=== PATIENT | male | born 1955 | race Caucasian/White ===

== ENCOUNTER → 2023-03-02 13:22 | Outpatient (CLI) | payer MEDICARE, SELFPAY ==
[2023-03-02 19:48] LABS: Add Manual Diff / Slide Review NO; Basophils Absolute Auto 0 /uL (0-100); Basophils Percent Auto 0.6 % (0-2); Eosinophils Absolute Auto 100 /uL (0-450); Eosinophils Percent Auto 1.9 % (2-4); Hematocrit 39.3 % (41-53); Hemoglobin 13.7 g/dL (13.5-17.5); Lymphocytes Absolute Auto 1800 /uL (1100-4500); Lymphocytes Percent Auto 33.2 % (25-40); Mean Corpuscular HGB Conc 34.8 % (30-36); Mean Corpuscular Hemoglobin 33.9 PG (26-34); Mean Corpuscular Volume 97.3 fL (80-100); Monocytes Absolute Auto 500 /uL (0-900); Monocytes Percent Auto 8.4 % (3-14); Neutrophils Absolute Auto 3000 /uL (1500-7000); Neutrophils Percent Auto 55.9 % (50-75); Platelet Count 164 X10^3/uL (150-400); Red Blood Cell Count 4.04 X10^6/uL (4.5-5.9); Red Cell Distribution Width 12.4 % (11.6-14.8); White Blood Cell Count 5.4 X10^3/uL (4.5-11.0)
[2023-03-02 19:52] LABS: Alanine Aminotransferase 20 IU/L (<50); Albumin 4.3 g/dL (3.5-5.0); Albumin Globulin Ratio 1.7 (1.0-2.8); Alkaline Phosphatase 46 U/L (38-126); Aspartate Aminotransferase 25 IU/L (17-59); BUN Creatinine Ratio 23.5 (6-22); Bilirubin Total 0.6 mg/dL (0.2-1.3); Blood Urea Nitrogen 19 mg/dL (9-20); Calcium 8.8 mg/dL (8.4-10.2); Carbon Dioxide 29 mmol/L (22-32); Chloride 103 mmol/L (98-107); Cholesterol 169 mg/dL (140-199); Estimated Glomerular Filt Rate > 60 mL/min (>60); Globulin 2.5 g/dL (1.7-4.1); Glucose 165 mg/dL (80-110); HDL Cholesterol 88 mg/dL (40-60); HEMOLYSIS < 15 (0-50); LDL Cholesterol Calculated 64 mg/dL (<100); Potassium 3.8 mmol/L (3.4-5.1); Sodium 136 mmol/L (137-145); Total Protein 6.8 g/dL (6.3-8.2); Triglycerides 85 mg/dL (35-150)
[2023-03-02 20:19] LABS: Thyroid Stimulating Hormone 1.75 uIU/mL (0.47-4.68)
[2023-03-04 00:23] LABS: x Labcorp Estim. Avg Glu (eAG) 103 mg/dL (.); x Labcorp Hemoglobin A1c 5.2 % (4.8-5.6)
== END ==
PROVIDERS: Family Provider Physician Assistant; PCP Family Medicine; Visit Provider Family Medicine
DX: Z13.6 Encounter for screening for cardiovascular disorders (principal); R68.84 Jaw pain; K59.00 Constipation, unspecified; M54.6 Pain in thoracic spine; R07.81 Pleurodynia; R10.9 Unspecified abdominal pain; R10.13 Epigastric pain
CPT/HCPCS: 80053; 80061; 83036; 84443; 85025

== ENCOUNTER → 2023-03-06 11:57 | Outpatient (CLI) | payer MEDICARE, SELFPAY ==
--- NOTE | 2023-03-06 11:59 | DI.CT.S_ITS ---
PROCEDURE: CT ABDOMEN PELVIS W CON INDICATIONS: epigastric and left flank pain - concern for pancreatic cancer TECHNIQUE: After the administration of oral and intravenous contrast, axial sections were acquired from the lung bases to the pubic symphysis. Coronal and sagittal reformats were performed. For radiation dose reduction, the following was used: automated exposure control, adjustment of mA and/or kV according to patient size. COMPARISON:[facility], CT, ABDOMEN/PELVIS WITH CONTRAST, 06/22/2007, 12:38. FINDINGS: Image quality: Excellent. Lung bases: Unremarkable. Heart: No significant findings. ABDOMEN: Liver: Unremarkable. Gallbladder: Unremarkable. Biliary ducts: Unremarkable. Pancreas: There is heterogeneous attenuation of the pancreatic head, with interspace to fat. The adjacent vessels are widely patent, without narrowing. No pancreatic ductal dilation. Spleen: Unremarkable. Adrenal Glands: Unremarkable. Kidneys and Ureters: Unremarkable. Stomach and Bowel: Stomach, small bowel loops, and colon are unremarkable. Peritoneum: No abnormal intraperitoneal fluid. No free air. Ventral Wall: Small umbilical hernia containing fat. Abdominal Nodes: No retroperitoneal or mesenteric adenopathy by size criteria. Vessels: Aorta and inferior vena cava are normal in size. PELVIS: Pelvic Organs: Unremarkable. Bladder: Unremarkable. Pelvic Nodes: No enlarged lymph nodes. Miscellaneous: No inguinal hernias are seen. Bones: Unremarkable. IMPRESSION: Heterogeneous attenuation of the pancreatic head, with interspaced fat. No adjacent adenopathy or vessel narrowing to suggest underlying mass. No pancreatic ductal dilation. This finding likely represents fatty deposition, with low chances of pancreatic head mass being present. If there remains a high clinical concern, endoscopic evaluation can be considered. Dictated by: Gene Harris M.D. on 03/06/2023 at 15:59 Approved by: Gene Harris M.D. on 03/06/2023 at 16:04
== END ==
PROVIDERS: Family Provider Physician Assistant; PCP Physician Assistant; Referring Provider Family Medicine; Visit Provider Family Medicine
DX: R10.13 Epigastric pain (principal); R10.9 Unspecified abdominal pain
CPT/HCPCS: 74177; Q9967

== ENCOUNTER → 2023-03-20 11:13 | Outpatient (CLI) | payer MEDICARE, SELFPAY ==
--- NOTE | 2023-03-20 11:15 | DI.MRI.S_ITS ---
PROCEDURE: MR AB PANCREATIC/MRCP PROTOCOL INDICATIONS: abnormal CT of pancreas. epigastric and back pain TECHNIQUE: Coronal HASTE through the abdomen, axial 2-D FLASH in- and [id number], and breath-hold T2 FSE with fat saturation through the biliary system and pancreas. Oblique coronal and axial thin-slice HASTE, radial thick-slab HASTE centered on the extrahepatic bile ducts. Intravenous secretin: Not requested. COMPARISON: Located Within [facility], CT, CT ABDOMEN PELVIS W CON, 03/06/2023, 12:21. FINDINGS: Image quality: Excellent. Liver: No solid mass. Gallbladder and biliary tree: No gallstones or biliary dilation. Spleen: Normal size. Pancreas: No ductal dilation. No solid mass. Mild fatty atrophy of the pancreatic head. A few sub 5 millimeter T2 hyperintense cystic lesions, most of which have connection to the pancreatic duct. For example, the 3 millimeter lesion in the pancreatic head (series 6, image 9) and the 3 millimeter lesion in the pancreatic tail (series 6, image 10). No associated nodularity. Adrenal glands: No adrenal nodules. Kidneys: No hydronephrosis. No solid mass. No complex renal cysts which requires follow-up. Nodes and vessels: No retroperitoneal or mesenteric adenopathy by size criteria. Aorta and inferior vena cava are normal in size. Bowel and peritoneum: Unenhanced bowel loops are normal in caliber. No free fluid. Lung bases: No basal pleural effusions. Heart size is normal. Bones and soft tissues: Tiny umbilical hernia containing fat. Bone marrow is of normal overall signal. IMPRESSION: No solid pancreatic mass identified. A few sub 5 millimeter T2 hyperintense cystic lesions within the pancreatic parenchyma, likely representing a side branch IPMN. Given size, recommend follow-up in 2 years with MRI/MRCP with contrast. Dictated by: Gene Harris M.D. on 03/20/2023 at 13:22 Approved by: Gene Harris M.D. on 03/20/2023 at 13:26
== END ==
PROVIDERS: Family Provider Physician Assistant; PCP Family Medicine; Referring Provider Family Medicine; Visit Provider Family Medicine
DX: R10.13 Epigastric pain (principal); M54.6 Pain in thoracic spine; R93.5 Abnormal findings on diagnostic imaging of other abdominal regions, including retroperitoneum
CPT/HCPCS: 74183; A9579

== ENCOUNTER → 2023-04-04 10:32 | Outpatient (CLI) | payer MEDICARE, SELFPAY ==
--- NOTE | 2023-04-04 10:33 | DI.MRI.S_ITS ---
PROCEDURE: MR THORACIC SPINE WO CON INDICATIONS: radiculopathy left chest wall TECHNIQUE: Noncontrast sagittal T1 spine echo and T2 fast spin echo, sagittal STIR, and T2 fast spin echo through the thoracic spine. COMPARISON: [facility] ([place]), CR, XR THORACIC SPINE 3V, 02/20/2023, 12:38. FINDINGS: Image quality: This examination is limited by involuntary motion artifact. Alignment and Curvature: Accentuated thoracic kyphosis is seen. No focal AP alignment abnormality is seen. Bone Marrow: Marrow is of normal overall signal. No acute vertebral body compression fractures. Spinal Cord: Visualized spinal cord is normal in size and signal. Paraspinous Soft Tissues: No paravertebral masses. Miscellaneous: Multiple levels of thoracic spine degenerative change can be seen, with scattered levels of mild disc space narrowing, with associated endplate irregularity and sclerosis. No significant neural foraminal narrowing is seen. No definite central canal narrowing is seen. IMPRESSION: Degenerative changes are seen, yet without a cause of the patient's presenting history. Dictated by: Joss White M.D. on 04/04/2023 at 17:31 Approved by: Joss White M.D. on 04/04/2023 at 17:32
== END ==
PROVIDERS: Family Provider Physician Assistant; PCP Family Medicine; Referring Provider Family Medicine; Visit Provider Family Medicine
DX: M54.10 Radiculopathy, site unspecified (principal); R07.89 Other chest pain; M47.814 Spondylosis without myelopathy or radiculopathy, thoracic region
CPT/HCPCS: 72146

== ENCOUNTER → 2023-05-10 13:55 | Outpatient (CLI) | payer MEDICARE, SELFPAY ==
[2023-05-15 09:22] LABS: Fecal Immunochemical Test Negative (Negative)
== END ==
PROVIDERS: Family Provider Physician Assistant; PCP Family Medicine; Visit Provider Family Medicine
DX: K59.00 Constipation, unspecified (principal)
CPT/HCPCS: 82274

== ENCOUNTER 2023-08-08 07:35 | Day surgery (SDC) | payer MEDICARE, SELFPAY ==
--- NOTE | 2023-08-08 | PATH_ITS ---
[facility] Accession Number: [id number] No. of containers..01 Tissue . 01 Material submitted: . cecum - CECAL POLYP . 01 Diagnosis: Cecum, Polyp: Tubular adenoma. JN 08/11/2023 1327 Local . 01 Electronically signed: . Gayle Pool MD, Pathologist NPI- [id number] . 01 Gross description: . CECAL POLYP: Received in formalin is 1 fragment(s) of whitaker, soft tissue measuring 0.8 x 0.4 x 0.3 cm submitted entirely in 1 cassette(s) /AAY 08/10/2023 0007 Local . 01 Pathologist provided ICD-10: D12.0 . 01 CPT . 039532 Specimen Comment: A courtesy copy of this report has been sent to [phone] Performed at: 01 [facility] [address] [place] [address], [place], [place] [id number] MD Ramakrishna Benavides MD Phone: [phone]
[2023-08-08 07:53] VITALS: BMI 30.4
[2023-08-08 07:58] VITALS: BP 154/91; PULSE 84; RESP 17; TEMP 36.9; O2SAT 94
[2023-08-08] MEDS: LACTATED RINGERS 1,000 ML 120 ML IV (08:01)
--- NOTE | 2023-08-08 08:13 | P.HP_ITS ---
History of Present Illness History of Present Illness Date Patient Seen: 08/08/23 Time Patient Seen: 08:13 Chief complaint: Screening Colonoscopy Narrative: 68-year-old man personal history of colonic polyps here for screening colonoscopy. Last colonoscopy 2017, [place]. family history unknown. Occasional bright red blood per rectum, no abdominal concerns. COUNTS INCLUDE 234 BEDS AT THE [facility] Medical History (Updated 05/02/23 @ 23:33 by Gayle Gupta MD) Pancreatic abnormality Knee pain Wears glasses Asbestosis PTSD (post-traumatic stress disorder) Foot pain Malaria Measles Chicken pox Hearing loss Kidney stones Surgical History (Updated 03/23/23 @ 20:31 by Fany Lozano) Anesthesia History of colonoscopy (~2018) History of knee surgery Family History (Updated 03/23/23 @ 20:33 by Fany Lozano) Mother History of heart disease Brother Broken leg Grandfather Cancer Social History household members: spouse Smoking Status: Never smoker alcohol intake: current Meds Home Medications and Allergies Home Medications Medication Instructions Recorded Confirmed Type sodium,potassium,mag sulfates 17.5 See Rx Instructions PO .COMPLEX 05/31/23 08/08/23 Rx gram-3.13 gram-1.6 gram oral soln #354 mL (Suprep Bowel Prep Kit) Allergies Allergy/AdvReac Type Severity Reaction Status Date / Time No Known Drug Allergies Allergy Verified 08/08/23 07:52 Exam Vital Signs (past 8 hours): - 08/08/23 07:58 Temperature 98.4 F Pulse Rate 84 Respiratory Rate 17 Blood Pressure 154/91 H Pulse Oximetry 94 Oxygen Delivery Method Room Air Oxygen Delivery Method Room Air Narrative Exam Narrative: General adult man alert oriented no acute distress Chest nonlabored respiration Extremities warm well perfused Assessment & Plan Assessment & Plan narrative: The patient requires colorectal screening and colonoscopy is recommended. Technical details were discussed. Risks, benefits, alternatives explained. Risks including but not limited to myocardial infarction, aspiration, bleeding, pain, missed lesion, incomplete examination, need for further radiographic studies, colonic perforation, and need for major abdominal surgery were discussed. All questions were answered to their satisfaction, and they are in agreement with this plan.
--- NOTE | 2023-08-08 08:14 | P.OP.COLON_ITS ---
Operative Date/Time/Diagnoses Date of procedure: 08/08/23 Time of procedure: 08:14 Pre-op diagnosis: Personal history of colonic polyps Procedure & Clinicians Study performed: Colonoscopy Same procedure as scheduled: Yes Indications: Colorectal screening Surgeon: Melchor Ballard Procedure Notes Procedure in detail: The history and physical was performed/updated and the patient is ASA class is 2. The procedure was discussed in detail with the patient. Potential risks complications including infection, bleeding, missed diagnosis, perforation, need for surgery, and were explained. Their questions were answered and informed consent was obtained. Patient was brought to the procedure room and placed standard monitoring equipment. The patient's vital signs were monitored continuously throughout the entire procedure. Prior to starting time-out was performed. The patient was placed in the left lateral recumbent position. Procedural sedation was administered by anesthesia. Examination began with a thorough inspection of the perianal area there was no evidence of fissures, fistulae, external hemorrhoids or cutaneous malignancy. The colonoscopy scope was then placed into the anal canal and was advanced to the cecum, which was identified by the ileocecal valve, the appendiceal orifice and the confluence of the taenia. The scope was then slowly withdrawn examining colon thoroughly in all directions, irrigating it of any residual stool. The scope was retroflexed within the rectum The patient tolerated the procedure well. They will be discharged once criteria are met. The prep was of good/excellent quality. The withdrawl time was 7 minutes. FINDINGS * Cecum-5 mm polyp removed in entirety with cold snare Specimen(s): other (Cecal polyp) Impression: Colonic polyp x1 Post-procedure Plan for aftercare: Follow-up is dependent on pathology findings likely 5 years. Disposition: same day surgery
[2023-08-08 09:10] VITALS: BP 119/74; PULSE 80; RESP 16; TEMP 36.1; O2SAT 97
[2023-08-08 09:20] VITALS: BP 135/74; PULSE 76; RESP 11; O2SAT 99
== END 2023-08-08 09:30 | disposition home or self-care (01) ==
PROVIDERS: Family Provider Physician Assistant; PCP Family Medicine; Referring Provider Surgery; Visit Provider Surgery
PROC: 0DJD8ZZ Inspection of Lower Intestinal Tract, Via Natural or Artificial Opening Endoscopic (ICD-10-PCS; CPT 45378; principal; 2023-08-08 08:45)
DX: Z12.11 Encounter for screening for malignant neoplasm of colon (principal); Z86.010 Personal history of colon polyps; D12.0 Benign neoplasm of cecum
CPT/HCPCS: 45385; J2704

== ENCOUNTER → 2024-03-27 11:35 | Outpatient (CLI) | payer MEDICARE, SELFPAY ==
[2024-03-27 20:43] LABS: Add Manual Diff / Slide Review NO; Basophils Absolute Auto 0 /uL (0-100); Basophils Percent Auto 0.5 % (0-2); Eosinophils Absolute Auto 200 /uL (0-450); Eosinophils Percent Auto 2.4 % (2-4); Hematocrit 43.6 % (41-53); Hemoglobin 15.1 g/dL (13.5-17.5); Lymphocytes Absolute Auto 2000 /uL (1100-4500); Mean Corpuscular HGB Conc 34.7 % (30-36); Mean Corpuscular Hemoglobin 33.8 PG (26-34); Mean Corpuscular Volume 97.6 fL (80-100); Monocytes Absolute Auto 600 /uL (0-900); Neutrophils Absolute Auto 3600 /uL (1500-7000); Neutrophils Percent Auto 56.1 % (50-75); Platelet Count 184 X10^3/uL (150-400); Red Blood Cell Count 4.46 X10^6/uL (4.5-5.9); Red Cell Distribution Width 13.1 % (11.6-14.8); White Blood Cell Count 6.4 X10^3/uL (4.5-11.0)
[2024-03-27 20:54] LABS: Alanine Aminotransferase 35 IU/L (<50); Albumin 4.4 g/dL (3.5-5.0); Albumin Globulin Ratio 1.8 (1.0-2.8); Alkaline Phosphatase 56 U/L (38-126); Aspartate Aminotransferase 32 IU/L (17-59); BUN Creatinine Ratio 19.1 (6-22); Bilirubin Total 0.6 mg/dL (0.2-1.3); Blood Urea Nitrogen 18 mg/dL (9-20); Calcium 9.4 mg/dL (8.4-10.2); Carbon Dioxide 27 mmol/L (22-32); Chloride 103 mmol/L (98-107); Creatine Kinase 52 U/L (55-170); Estimated Glomerular Filt Rate > 60 mL/min (>60); Globulin 2.5 g/dL (1.7-4.1); Glucose 152 mg/dL (80-110); Potassium 4.8 mmol/L (3.4-5.1); Sodium 137 mmol/L (137-145); Total Protein 6.9 g/dL (6.3-8.2)
[2024-03-27 21:07] LABS: NT-proBNP (BNP-Adult 18+) < 20 pg/mL (<125); Troponin I < 0.012 ng/mL (0.01-0.034)
[2024-03-27 21:15] LABS: Thyroid Stimulating Hormone 2.29 uIU/mL (0.47-4.68)
[2024-03-28 03:04] LABS: HEMOLYSIS < 15 (0-50); LDL Cholesterol Direct 72 mg/dL (<100)
== END ==
PROVIDERS: Family Provider Physician Assistant; PCP Family Medicine; Visit Provider Family Medicine
DX: R00.2 Palpitations (principal); E78.5 Hyperlipidemia, unspecified; R06.00 Dyspnea, unspecified; M79.89 Other specified soft tissue disorders
CPT/HCPCS: 80053; 82550; 83721; 83880; 84443; 84484; 85025

== ENCOUNTER → 2024-04-18 09:59 | Outpatient (CLI) | payer MEDICARE, SELFPAY ==
--- NOTE | 2024-04-18 10:00 | DI.ECHO.S_ITS ---
[facility]---------+ [facility] : : [address] : : [place] : : [id number] : : Phone: [phone] Echocardiogram Report + + :Name: NILESH LEIGH Study Date: 04/18/2024 Height: 72 in : :Hospital ReadingLocation: Weight: 235 lb : : Gender: Male BSA: 2.3 m2 : :: 1955 Age: 69 yrs BP: 139/87 mmHg: :Reason For Study: DYSPNEA, BILATREAL LEG SWELLING : :Ordering Physician: YUKI, : :JOANNA Performed By: Liya Valenzuela : :Referring: JOANNA MIRZA : + + Interpretation Summary The left ventricle is normal in size and wall thickness. The left ventricular ejection fraction is normal. The ejection fraction is estimated to be 55-60%. The right ventricle is normal in size and function. No significant valvular pathology seen. The IVC is of normal diameter and collapses greater than 50% with a sniff. This suggests a low right atrial pressure of 3 mm Hg. Procedure: A two-dimensional transthoracic echocardiogram with color flow and Doppler was performed. The study quality was technically adequate. There is no prior echocardiogram noted for this patient. The patient was in sinus rhythm with heart rates between 68-77 bpm during the exam. Left Ventricle: The left ventricle is normal in size and wall thickness. A false chord is noted (normal variant). The ejection fraction is estimated to be 55-60%. The left ventricular ejection fraction is normal. There are no focal wall motion abnormalities. No significant diastolic dysfunction. Right Ventricle: The right ventricle is normal in size and function. Atria: The left atrial size is normal. Right atrial size is normal. There is no Doppler evidence for an interatrial shunt. Mitral Valve: The mitral valve is normal in structure and function. There is trace mitral regurgitation. Aortic Valve: The aortic valve is trileaflet. The aortic valve opens well. There is no aortic valve stenosis. No aortic regurgitation is present. Tricuspid Valve: The tricuspid valve is normal in structure and function. There is trace tricuspid regurgitation. The right ventricular systolic pressure is estimated to be at least 20 mmHg based on an estimated right atrial pressure of 3 mm Hg. Pulmonic Valve: The pulmonic valve leaflets are thin and pliable; valve motion is normal. There is mild pulmonic regurgitation. Great Vessels: The aortic root is normal size. The dimensions of the ascending aorta are normal. The IVC is of normal diameter and collapses greater than 50% with a sniff. This suggests a low right atrial pressure of 3 mm Hg. Pericardium/ Pleura There is no pericardial effusion. There is no pleural effusion. MMode/2D Measurements & Calculations LVIDd: 5.0 cm LVOT diam: 2.0 cm LVIDs: 3.8 cm Ao root diam: 3.6 cm FS: 25.3 % asc Aorta Diam: 3.5 cm EPSS: 1.1 cm Ao Arch Diam (Prox Trans): 2.6 cm IVSd: 0.80 cm LVPWd: 0.95 cm LV leon. diameter/BSA (cm/m^2): 2.2 LV sys. diameter/BSA (cm/m^2): 1.7 LA A2 area: 19.8 cm2 RA long axis: 5.3 cm LA A4 area: 17.5 cm2 RA area: 17.7 cm2 LA length (vol): 5.0 cm RA vol: 50.1 ml LA vol: 58.7 ml RA : 22.0 ml/m2 LA vol index: 25.7 ml/m2 IVC diam: 2.0 cm RVD1 (basal): 3.7 cm RVD2 (mid): 3.2 cm TAPSE: 2.2 cm Doppler Measurements & Calculations Ao V2 max: 152.1 cm/sec LVOT Max Rafa: 95.1 cm/sec Ao V2 mean: 114.9 cm/sec LV V1 max P.6 mmHg Ao max P.3 mmHg LV V1 VTI: 21.3 cm Ao mean P.7 mmHg YAMILA(I,D): 2.1 cm2 Ao V2 VTI: 32.8 cm YAMILA(V,D): 2.0 cm2 sev ratio: 0.65 YAMILA indexed to BSA (cm^2/m^2): 0.93 MV E max rafa: 87.1 cm/sec TR max rafa: 206.2 cm/sec MV A max rafa: 84.8 cm/sec TR max P.0 mmHg MV E/A: 1.0 PA V2 max: 131.5 cm/sec Med Peak E' Rafa: 7.7 cm/sec PA V2 mean: 94.8 cm/sec E/E' med: 11.3 PA mean P.9 mmHg Lat Peak E' Rafa: 10.0 cm/sec PA pr(Accel): 25.9 mmHg E/E' lat: 8.7 E/e' average: 10.0 MV dec time: 0.21 sec SV(LVOT): 69.4 ml Reading Physician:01:59 PM
--- NOTE | 2024-04-18 10:00 | DI.NM.S_ITS ---
PROCEDURE: NM JOSUÉ PERF SPECT R&S PHARM Rest and pharmacological stress myocardial perfusion SPECT with gated imaging and ejection fraction RADIOPHARMACEUTICAL: 25.2 mCi Tc-99m tetrafosmin IV at rest and 25.1 mCi Tc-99m tetrafosmin IV at peak effect of pharmacological stress. [id number] was performed. INDICATIONS: dyspnea on exertion, leg swelling, palpitations PQRS ATTESTATIONS: Measure 322 - Is this imaging test primarily performed on a low-risk surgery patient for preoperative evaluation within 30 days preceding their low-risk non-cardiac surgery? Low-risk surgery is defined as cardiac or myocardial infarction less than 1%, including (but not limited to) endoscopic procedures, superficial procedures, cataract surgery, and excisional breast surgery: Answer: No Measure 323 - Is this imaging test performed primarily for the monitoring of an asymptomatic patient who had percutaneous coronary intervention on the visit date or within 2 years of the visit date? Answer: No Measure 324 - Is this imaging test performed primarily for the initial detection and risk assessment on an asymptomatic, low coronary heart disease patient? Low CHD risk definition = clinicians should consider the maximum number of available patient factors used to estimate risk based on [place] (ATP III criteria), typically age, gender, diabetes, smoking status, and use of blood pressure medication, and integrate age appropriate estimates for missing elements, such as LDL or standard blood pressure. Answer: No TECHNIQUE: Radiopharmaceutical was injected at peak stress test, and also at rest. SPECT images were obtained. SPECT myocardial perfusion images were displayed in short axis, horizontal long axis, and vertical long axis views. Gated images were reviewed using [employer] software. COMPARISON: None. CARDIAC STRESS: A pharmacologic stress test was performed under the supervision of an attending staff, using an infusion of Lexiscan 0.4 mg. Hemodynamic data: There is normal blood pressure and heart rate response to pharmacologic stress. Symptoms: The patient had chest pain and shortness of breath with Lexiscan infusion that resolved after completion of infusion. Aminophylline: No EKG: No diagnostic changes of ischemia; no ectopy. FINDINGS: Raw data: There is good myocardial uptake of radiotracer. No significant motion artifacts. Lewk-mi-nmtlv ratio is 0.34 (normal is less than 0.38 for tetrafosmin tracer). Left ventricle function: Gated images demonstrate normal left ventricular wall thickening. No segmental wall motion abnormalities. No transient ischemic dilation; TID is 0.98 (normal less than 1.3). Left ventricle resting end diastolic volume is 138 mL. Left ventricle stress ejection fraction is 64%; normal range is above 45%. Myocardial perfusion: There is normal distribution of activity in the right and left ventricular myocardium. There is a small area of slight hypoperfusion in the distal inferior segment on rest images. No perfusion defects were noted in the stress and prone images. This most likely represents artifact. Normal gated images noted. IMPRESSION: 1. Negative Lexiscan myocardial perfusion scan for ischemia and infarction. Dictated by: Preston Enamorado M.D. on 04/29/2024 at 16:35 Approved by: Preston Enamorado M.D. on 04/29/2024 at 16:37
== END ==
PROVIDERS: Family Provider Physician Assistant; PCP Family Medicine; Referring Provider Family Medicine; Visit Provider Family Medicine
DX: I37.1 Nonrheumatic pulmonary valve insufficiency (principal); R00.2 Palpitations; R06.00 Dyspnea, unspecified; M79.89 Other specified soft tissue disorders
CPT/HCPCS: 93306

== ENCOUNTER → 2024-05-20 10:27 | Outpatient (CLI) | payer MEDICARE, SELFPAY ==
--- NOTE | 2024-05-20 10:29 | DI.CT.S_ITS ---
PROCEDURE: CT CHEST W CON INDICATIONS: dyspnea, worsening, CXR negative in 2022, night sweats TECHNIQUE: After the administration of intravenous contrast, 5 mm thick sections acquired from the pulmonary apices to the posterior costophrenic angles. 1 mm axial lung, 5 mm thick coronal and sagittal reformats and 7 mm axial MIP were acquired. For radiation dose reduction, the following was used: automated exposure control, adjustment of mA and/or kV according to patient size. COMPARISON: None. FINDINGS: Image quality: Diagnostic. Lower Neck: No enlarged lymph nodes. Thyroid: No thyroid nodules which require sonographic follow up, per consensus guidelines. Axillae: No enlarged lymph nodes. Chest Wall: Unremarkable. Bones: Unremarkable. Lungs and Pleura: No pneumothorax or pleural effusions. No consolidation or suspicious nodules. Heart: Heart size is normal. No pericardial effusion. Thoracic Vessels: The aorta and pulmonary arteries demonstrate normal size. Mediastinum and Anupama: No enlarged lymph nodes. Esophagus: No wall thickening. No hiatal hernia. Upper Abdomen: Visualized upper abdomen solid organs and bowel loops appear normal. IMPRESSION: Normal CT of the chest Approved by: Austen Anderson M.D. on 05/20/2024 at 16:14
[2024-05-20 11:04] LABS: Blood Urea Nitrogen 19 mg/dL (9-20); Carbon Dioxide 29 mmol/L (22-32); Chloride 104 mmol/L (98-107); Estimated Glomerular Filt Rate > 60 mL/min (>60); HEMOLYSIS < 15 (0-50); Sodium 138 mmol/L (137-145)
[2024-05-20 12:07] LABS: Hemoglobin A1C% w Est Avg Glu 5.2 % (4.0-6.0)
[2024-05-20 12:57] LABS: BUN Creatinine Ratio 17.6 (6-22); Calcium 8.8 mg/dL (8.4-10.2); Glucose 155 mg/dL (80-110)
== END ==
PROVIDERS: Family Provider Physician Assistant; PCP Family Medicine; Referring Provider Family Medicine; Visit Provider Family Medicine
DX: R73.9 Hyperglycemia, unspecified (principal); Z01.812 Encounter for preprocedural laboratory examination; R61 Generalized hyperhidrosis; R06.00 Dyspnea, unspecified
CPT/HCPCS: 36415; 71260; 80048; 83036; Q9967

== ENCOUNTER → 2024-05-28 10:07 | Outpatient (CLI) | payer MEDICARE, SELFPAY | PROVIDERS: Family Provider Physician Assistant; PCP Family Medicine; Referring Provider Family Medicine; Visit Provider Family Medicine | DX: R06.09 Other forms of dyspnea (principal); I87.8 Other specified disorders of veins; Z87.891 Personal history of nicotine dependence; R94.2 Abnormal results of pulmonary function studies | CPT/HCPCS: 94060; 94618; 94726; 94729 ==

== ENCOUNTER → 2025-04-30 12:50 | Outpatient (CLI) | payer MEDICARE, SELFPAY ==
[2025-04-30 18:42] LABS: Hematocrit 43.8 % (41-53); Hemoglobin 15.2 g/dL (13.5-17.5); Mean Corpuscular HGB Conc 34.7 % (30-36); Mean Corpuscular Hemoglobin 33.8 PG (26-34); Mean Corpuscular Volume 97.2 fL (80-100); Platelet Count 164 X10^3/uL (150-400)
[2025-04-30 18:53] LABS: Alanine Aminotransferase 33 IU/L (<50); Albumin 4.5 g/dL (3.5-5.0); Albumin Globulin Ratio 1.7 (1.0-2.8); Alkaline Phosphatase 57 U/L (38-126); Blood Urea Nitrogen 18 mg/dL (9-20); Calcium 9.1 mg/dL (8.4-10.2); Carbon Dioxide 24 mmol/L (22-32); Chloride 105 mmol/L (98-107); Cholesterol 174 mg/dL (140-199); Estimated Glomerular Filt Rate > 60 mL/min (>60); Globulin 2.7 g/dL (1.7-4.1); Glucose 116 mg/dL (70-99); HDL Cholesterol 82 mg/dL (40-60); HEMOLYSIS < 15 (0-50); Potassium 4.2 mmol/L (3.4-5.1); Sodium 138 mmol/L (137-145); Total Protein 7.2 g/dL (6.3-8.2); Triglycerides 118 mg/dL (35-150)
[2025-04-30 18:56] LABS: Hemoglobin A1C% w Est Avg Glu 5.4 % (4.0-6.0)
[2025-04-30 19:23] LABS: Thyroid Stimulating Hormone 2.13 uIU/mL (0.47-4.68)
== END ==
PROVIDERS: PCP Family Medicine; Visit Provider Family Medicine
DX: J45.998 Other asthma (principal); R73.9 Hyperglycemia, unspecified; Z12.5 Encounter for screening for malignant neoplasm of prostate; Z13.6 Encounter for screening for cardiovascular disorders; R06.09 Other forms of dyspnea; Q45.3 Other congenital malformations of pancreas and pancreatic duct; Z13.1 Encounter for screening for diabetes mellitus
CPT/HCPCS: 80053; 80061; 83036; 84443; 85027; G0103

== ENCOUNTER → 2025-06-19 11:11 | Outpatient (CLI) | payer MEDICARE, SELFPAY ==
--- NOTE | 2025-06-19 | DI.MRI.S_ITS ---
PROCEDURE: MR KNEE LT WO CON INDICATIONS: Internal derangement knee TECHNIQUE: Noncontrast sagittal PD fast spin echo and T2 fast spin echo with fat saturation, sagittal 3-D FLASH with fat saturation; coronal T1 spin echo and PD fast spin echo with fat saturation, and axial PD fast spin echo with fat saturation through the knee. COMPARISON: [facility] ([place]), CR, XR KNEE LT 3V, 06/04/2025, 14:38. FINDINGS: Image quality: Excellent. Menisci: Signal abnormality within posterior horn of medial meniscus which does not extend to articulating surface to meet the criteria for focal meniscal tear. Peripheral displacement of lateral meniscus bowing lateral collateral ligament. Complex oblique tear involving anterior horn, body and posterior horn of lateral meniscus extending to both superior and inferior articulating surfaces. Cruciate ligaments: The anterior cruciate ligament is thickened. The posterior cruciate ligament is intact. Medial structures: The medial collateral ligament appears thickened with mild surrounding edema. Visualized portions of the pes anserinus tendons appear normal. No abnormal bursal fluid. Lateral structures: The lateral collateral ligament is mildly thickened with intrasubstance T2 hyperintense signal at its lateral femoral insertion. The long and short heads of the biceps femoris tendon appear intact. The popliteus tendon appears normal. Iliotibial band appears normal. Anterior structures: The quadriceps and patellar tendons appear intact. Patellar alignment is normal. 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 Small osteochondral injuries are noted involving posterior and lateral aspect of patella. No fracture or dislocation. Joint space: There is small knee joint fluid. No Steve's cyst. Normal appearing synovial plicae are incidentally noted. IMPRESSION: 1. Complex tear involving throughout lateral meniscus extending to both superior and inferior articulating surfaces. No medial meniscal tear. 2. Degenerative changes and low-grade intrasubstance partial-thickness tear involving ACL. No ACL rupture. The PCL is intact. 3. Low-grade MCL sprain. Low-grade sprain/partial-thickness tear involving proximal LCL. 4. Bqlf-gu-grtcgtvu tricompartmental osteoarthritis and chondromalacia as above. No acute fracture or dislocation. Small joint effusion, no loose bodies. Dictated by: Carlos Enamorado M.D. on 06/19/2025 at 20:31 Approved by: Carlos Enamorado M.D. on 06/19/2025 at 20:40
== END ==
LOC: MRI 11:12
PROVIDERS: PCP Family Medicine; Referring Provider Family Medicine; Visit Provider Family Medicine
DX: M23.92 Unspecified internal derangement of left knee (principal); S83.232A Complex tear of medial meniscus, current injury, left knee, initial encounter; S83.512A Sprain of anterior cruciate ligament of left knee, initial encounter; S83.412A Sprain of medial collateral ligament of left knee, initial encounter; M17.12 Unilateral primary osteoarthritis, left knee; M94.262 Chondromalacia, left knee; M25.462 Effusion, left knee
CPT/HCPCS: 73721